=== PATIENT | female | born 2000 | race American Indian/Alaskan Native ===

== ENCOUNTER 2019-07-30 10:25 | Emergency (ER) | payer OTHER ==
[2019-07-30 10:48] VITALS: BP 125/56
[2019-07-30] MEDS ORDERED: ACETAMINOPHEN 500 MG TAB PO ONE (11:45)
[2019-07-30] MEDS ORDERED: IBUPROFEN 600 MG TAB PO ONE (11:45)
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
== END 2019-07-30 13:59 | disposition home or self-care (01) ==
LOC: ED 10:25
DX: R51 Headache (principal); M79.18 Myalgia, other site
CPT/HCPCS: 99282